=== PATIENT | female | born 1985 | race Caucasian/White ===

== ENCOUNTER 2016-07-11 07:40 | Emergency (ER) | payer OTHER ==
[2016-07-11] MEDS ORDERED: Ondansetron 4 MG Tab.DIS PO ONE (08:49)
[2016-07-11] MEDS ORDERED: Sodium Chloride 0.9% 2.5 ML Syringe FLUSH PRN (08:50)
[2016-07-11] MEDS ORDERED: Sodium Chloride 0.9% 10 ML Syringe FLUSH PRN (08:50)
--- NOTE | 2016-07-11 08:54 | EDM.PDOC ---
ED HPI GI/ABDOMINAL - General Chief Complaint: Gastrointestinal Problem Stated Complaint: SICK/FEVER Time Seen by Provider: 07/11/16 08:13 Source of Information: Reports: Patient History Limitations: Reports: No limitations - History of Present Illness INITIAL COMMENTS - FREE TEXT/NARRATIVE: HISTORY AND PHYSICAL: History of present illness: [30-year-old female with no significant past medical history and no prior abdominal problems now complaining of nausea and diarrhea for several days. She denies abdominal pain. She has not actually vomiting but states her nausea makes her mildly uncomfortable.] She is normal bladder habits. Patient denies possibility of as she is having normal periods that she's not 6 active. Per triage note the patient did fall off worse recently but states she did not suffer any significant injury and has just been mildly sore since. She had no head injury or loss of consciousness. Denies any significant neck or back pain other than general soreness. No spinal pain. Patient is been ambulatory and functional without difficulty since the injury and since the onset of this illness. She does perceive some fevers chills and sweats but temperature in triage was 100.1 with no antipyretics taken this morning. No headache or stiff neck Review of systems: As per history of present illness and below otherwise all systems reviewed and negative. Past medical history: As per history of present illness and as reviewed below otherwise noncontributory. Surgical history: As per history of present illness and as reviewed below otherwise noncontributory. Social history: No reported history of drug or alcohol abuse. Family history: As per history of present illness and as reviewed below otherwise noncontributory. Physical exam: HEENT: Atraumatic, normocephalic, pupils reactive, negative for conjunctival pallor or scleral icterus, mucous membranes moist, throat clear, neck supple, nontender, trachea midline. Lungs: Clear to auscultation, breath sounds equal bilaterally, chest nontender. Heart: S1S2, regular, negative for clicks, rubs, or JVD. Abdomen: Soft, nondistended, nontender. Negative for masses or hepatosplenomegaly. Negative for costovertebral tenderness. Pelvis: Stable nontender. Genitourinary: Deferred. Rectal: Deferred. Extremities: Atraumatic, negative for cords or calf pain. Neurovascular unremarkable. Neuro: Awake, alert, oriented. Cranial nerves grossly unremarkable. Cerebellum unremarkable. Motor and sensory unremarkable throughout. Exam nonfocal. Diagnostics: [Basic met pending to rule out electrolyte abnormality] Therapeutics: [Zofran and IV fluids given] Impression: [] Plan: [Signs and symptoms consistent with viral gastroenteritis in a well-appearing patient with moist mucous membranes and very mild tachycardia 107 on arrival. Abdominal exam completely benign. Patient is well-appearing. Recent fall from horse but patient did not come to the emergency department because of a mild generalized soreness she's experienced since, but rather because of her nausea and diarrhea. She has no abdominal pain. Normal bladder habits. Denies possibility of basic metabolic panel pending to rule out hypokalemia secondary to diarrhea, or other electrolyte abnormality. Patient hydrated with a liter of normal saline in the ED and feels improved. No further workup or treatment indicated. Patient agrees with outpatient followup. Zofran prescribed and Strict return precautions given. Definitive disposition and diagnosis as appropriate pending reevaluation and review of above. - Related Data Allergies/ADRs: Allergies Allergy/AdvReac Type Severity Reaction Status Date / Time diphenhydramine Allergy Hives Verified 07/11/16 07:56 [From Benadryl] Home Meds: Home Meds Ondansetron [Zofran ODT] 4 mg SL Q4H PRN #16 tab.dis 07/11/16 [Rx] Past Medical History Psychiatric History: Reports: Anxiety, Depression - Past Surgical History HEENT Surgical History: Reports: Tonsillectomy Female Surgical History: Reports: section Social & Family History - Family History Family Medical History: Noncontributory - Tobacco Use Smoking Status *Q: Never Smoker - Caffeine Use Caffeine Use: Reports: Soda - Recreational Drug Use Recreational Drug Use: No ED ROS GENERAL - Review of Systems Review Of Systems: See Below (History of present illness) ED EXAM, GI/ABD - Physical Exam Exam: See Below (History of present illness) Course - Vital Signs Last Recorded V/S: Last Vital Signs Temp 37.8 C 07/11/16 07:56 Pulse 107 H 07/11/16 07:56 Resp 18 07/11/16 07:56 BP 119/65 07/11/16 07:56 Pulse Ox 96 07/11/16 07:56 - Orders/Labs/Meds Orders: Active Orders 24 hr Category Date Time Status BASIC METABOLIC PANEL,BMP [CHEM] Routine Lab 07/11/16 09:06 Received Sodium Chloride 0.9% [Normal Saline] 1,000 ml Med 07/11/16 09:00 Active IV STAT Sodium Chloride 0.9% [Saline Flush] Med 07/11/16 08:50 Active 10 ml FLUSH ASDIRECTED PRN Sodium Chloride 0.9% [Saline Flush] Med 07/11/16 08:50 Active 2.5 ml FLUSH ASDIRECTED PRN Peripheral IV Insertion Adult [OM.PC] Stat Oth 07/11/16 08:50 Ordered Medication Orders Sodium Chloride (Normal Saline) 1,000 mls @ 999 mls/hr IV STAT PAM Last Admin: 07/11/16 09:07 Dose: 999 mls/hr Sodium Chloride (Saline Flush) 10 ml FLUSH ASDIRECTED PRN PRN Reason: Keep Vein Open Sodium Chloride (Saline Flush) 2.5 ml FLUSH ASDIRECTED PRN PRN Reason: Keep Vein Open Meds: Medications Generic Name Dose Route Start Last Admin Trade Name Freq PRN Reason Stop Dose Admin Sodium Chloride 1,000 mls @ 999 mls/hr 07/11/16 09:00 07/11/16 09:07 Normal Saline IV 999 mls/hr STAT PAM Administration Sodium Chloride 10 ml 07/11/16 08:50 Saline Flush FLUSH ASDIRECTED PRN Keep Vein Open Sodium Chloride 2.5 ml 07/11/16 08:50 Saline Flush FLUSH ASDIRECTED PRN Keep Vein Open Discontinued Medications Generic Name Dose Route Start Last Admin Trade Name Freq PRN Reason Stop Dose Admin Ondansetron HCl 4 mg 07/11/16 08:49 07/11/16 08:58 Zofran Odt PO 07/11/16 08:50 4 mg ONETIME ONE Administration Departure - Departure Time of Disposition: 09:16 Disposition: Home, Self-Care 01 Condition: good Clinical Impression: Viral gastroenteritis, Viral syndrome, Diarrhea Prescriptions: Ondansetron [Zofran ODT] 4 mg SL Q4H PRN #16 tab.dis PRN Reason: Nausea Instructions: Viral Gastroenteritis, Adult, [id number] Referrals: PCP,None [Primary Care Provider] - Forms: ED Department Discharge Additional Instructions: Your symptoms and findings are consistent with viral gastroenteritis. This is a viral infection it causes nausea and diarrhea. Rest and drink plenty of fluids. Use Zofran under your tongue every 4 hours as needed for nausea. Take Tylenol every 4 hours and Motrin every 6 hours if needed for fevers or body aches. Followup with your tomorrow and return immediately for new severe or worsening symptoms - My Orders Last 24 Hours: My Active Orders 07/11/16 08:50 Sodium Chloride 0.9% [Saline Flush] 10 ml FLUSH ASDIRECTED PRN Sodium Chloride 0.9% [Saline Flush] 2.5 ml FLUSH ASDIRECTED PRN Peripheral IV Insertion Adult [OM.PC] Stat 07/11/16 09:00 Sodium Chloride 0.9% [Normal Saline] 1,000 ml IV STAT 07/11/16 09:06 BASIC METABOLIC PANEL,BMP [CHEM] Routine - Assessment/Plan Last 24 Hours: My Active Orders 07/11/16 08:50 Sodium Chloride 0.9% [Saline Flush] 10 ml FLUSH ASDIRECTED PRN Sodium Chloride 0.9% [Saline Flush] 2.5 ml FLUSH ASDIRECTED PRN Peripheral IV Insertion Adult [OM.PC] Stat 07/11/16 09:00 Sodium Chloride 0.9% [Normal Saline] 1,000 ml IV STAT 07/11/16 09:06 BASIC METABOLIC PANEL,BMP [CHEM] Routine
[2016-07-11] MEDS ORDERED: Sodium Chloride 0.9% 1,000 ML IV SCH (09:00)
[2016-07-11 09:52] LABS: CHLORIDE,CL 104 mmol/L (98-110); SODIUM,NA 133 mmol/L (136-146)
[2016-07-11] MEDS ORDERED: Sodium Chloride 0.9% 1,000 ML IV ONE (10:03)
[2016-07-11] MEDS ORDERED: Acetaminophen 500 MG Tab PO STA (10:04)
[2016-07-11 10:58] VITALS: BP 109/58
== END 2016-07-11 10:45 | disposition home or self-care (01) ==
LOC: MW.ED 07:40
DX: A08.4 Viral intestinal infection, unspecified (principal); B34.9 Viral infection, unspecified; F32.9 Major depressive disorder, single episode, unspecified; F41.9 Anxiety disorder, unspecified; Z98.890 Other specified postprocedural states; Z88.8 Allergy status to other drugs, medicaments and biological substances
CPT/HCPCS: 36415; 80048; 96360; 99283; A9270; J7040

== ENCOUNTER 2016-07-23 21:24 | Emergency (ER) | payer OTHER ==
[2016-07-23] MEDS ORDERED: Bacitracin Oint 1 GM U/D Packet TOP ONE (21:49)
--- NOTE | 2016-07-23 21:53 | EDM.PDOC ---
ED HPI GENERAL MEDICAL PROBLEM - General Stated Complaint: PT HURT LT HAND Time Seen by Provider: 07/23/16 21:42 - History of Present Illness INITIAL COMMENTS - FREE TEXT/NARRATIVE: HISTORY AND PHYSICAL: History of present illness: The patient is a healthy 30-year-old female who presents with complaints of pain and swelling to the dorsal aspect of her left hand. Patient states that about 1:30 this afternoon a piece of equipment from her worse trailer fell on top of it causing a superficial wound of swelling and pain. Patient says her last tetanus was 5 years ago and defers a tetanus shot here today. Patient is right-hand dominant. Patient says that earlier prior to these events she was in her usual state of good health with no systemic complaints and currently has no systemic complaints other than pain to her hand. There is no numbness or tingling in her fingers. Patient took Motrin earlier Review of systems: As per history of present illness and below otherwise all systems reviewed and negative. Past medical history: As per history of present illness and as reviewed below otherwise noncontributory. Surgical history: As per history of present illness and as reviewed below otherwise noncontributory. Social history: No reported history of drug or alcohol abuse. Family history: As per history of present illness and as reviewed below otherwise noncontributory. Physical exam: General: Well-developed well-nourished female is nontoxic and vital signs of a noted by me. HEENT: Atraumatic, normocephalic, negative for conjunctival pallor or scleral icterus, mucous membranes moist, throat clear, neck supple, nontender, trachea midline. Lungs: Clear to auscultation, breath sounds equal bilaterally, chest nontender. Heart: S1S2, regular rate and rhythm no overt murmurs Abdomen: Soft, nondistended, nontender. NABS Pelvis: Stable nontender. Genitourinary: Deferred. Rectal: Deferred. Extremities: Atraumatic except for the dorsal aspect of the left hand where there is soft tissue swelling throughout and tenderness. No palpable bony deformities are appreciated or crepitus. There is a superficial puncture like wound is seen which is nonbleeding. Patient is able to move all digits and cap refill is good. Pulses are intact and proximal wrist forearm elbow and shoulder are without tenderness defects or deformities. All of the extremities have full range of motion and the legs are, negative for cords or calf pain. Neurovascular unremarkable. Neuro: Awake, alert, oriented. Cranial nerves II through XII unremarkable. Cerebellum unremarkable. Motor and sensory unremarkable throughout. Exam nonfocal. Diagnostics: Left hand x-ray Therapeutics: Patient was offered pain medication andTdap and defers at this time Wound care velcro hand/wrist splint Impression: Left hand injury, contusion with puncture wound Definitive disposition and diagnosis as appropriate pending reevaluation and review of above. Left Hand Pain Score (Numeric/FACES): 6 - Related Data Allergies Allergy/AdvReac Type Severity Reaction Status Date / Time diphenhydramine Allergy Hives Verified 07/11/16 07:56 [From Benadryl] Home Meds: Home Meds FLUoxetine [PROzac] 10 mg PO DAILY 07/11/16 [History] Past Medical History Psychiatric History: Reports: Anxiety, Depression - Past Surgical History Female Surgical History: Reports: Section Social & Family History - Family History Family Medical History: Noncontributory - Tobacco Use Smoking Status *Q: Never Smoker - Caffeine Use Caffeine Use: Reports: Soda - Recreational Drug Use Recreational Drug Use: No ED ROS GENERAL - Review of Systems Review Of Systems: ROS reveals no pertinent complaints other than HPI. ED EXAM, GENERAL - Physical Exam Exam: See Below (See dictation) Course - Vital Signs Last Recorded V/S: Last Vital Signs Temp 37.1 C 07/23/16 21:50 Pulse 78 07/23/16 21:50 Resp 19 07/23/16 21:50 BP 142/83 H 07/23/16 21:50 Pulse Ox 97 07/23/16 21:50 - Orders/Labs/Meds Orders: Active Orders 24 hr Category Date Time Status Communication Order [RC] STAT Care 07/23/16 21:49 Active Hand Comp Min 3V Lt [CR] Stat Exams 07/23/16 21:49 Taken DME for Discharge [COMM] Stat Oth 07/23/16 22:27 Ordered Meds: Medications Discontinued Medications Generic Name Dose Route Start Last Admin Trade Name Freq PRN Reason Stop Dose Admin Bacitracin 1 dose 07/23/16 21:49 07/23/16 22:10 Bacitracin Oint 1 Gm TOP 07/23/16 21:50 1 dose ONETIME ONE Administration Departure - Departure Time of Disposition: 22:28 Disposition: Home, Self-Care 01 Condition: good Clinical Impression: Contusion of left hand Qualifiers: Encounter type: initial encounter Qualified Code(s): S60.222A - Contusion of left hand, initial encounter - Discharge Information Additional Instructions: The following information is given to patients seen in the emergency department who are being discharged to home. This information is to outline your options for follow-up care. We provide all patients seen in our emergency department with a follow-up referral. The need for follow-up, as well as the timing and circumstances, are variable depending upon the specifics of your emergency department visit. If you don't have a primary care physician on staff, we will provide you with a referral. We always advise you to contact your personal physician following an emergency department visit to inform them of the circumstance of the visit and for follow-up with them and/or the need for any referrals to a consulting specialist. The emergency department will also refer you to a specialist when appropriate. This referral assures that you have the opportunity for followup care with a specialist. All of these measure are taken in an effort to provide you with optimal care, which includes your followup. Under all circumstances we always encourage you to contact your private physician who remains a resource for coordinating your care. When calling for followup care, please make the office aware that this follow-up is from your recent emergency room visit. If for any reason you are refused follow-up, please contact the [facility] emergency department at and ask to speak to the emergency department charge nurse. [facility] Specialty clinic-Plastic Surgery and Hand Surgery Professional Building [address] [place] [id number] [facility] Primary care- Internal Medicine and Family [facility] [address] [place] [id number] Wear splint as shown the next 5-7 days and call and followup with our hand specialist using resources given to above. Call for that appointment on Monday to be seen next week. Keep the wound clean and dry with mild soap and water and bacitracin or Neosporin. Ice and elevate the hand and return to ER as needed and as discussed. Use [id number] medication as needed for pain - My Orders Last 24 Hours: My Active Orders 07/23/16 21:49 Communication Order [RC] STAT Hand Comp Min 3V Lt [CR] Stat 07/23/16 22:27 DME for Discharge [COMM] Stat - Assessment/Plan Last 24 Hours: My Active Orders 07/23/16 21:49 Communication Order [RC] STAT Hand Comp Min 3V Lt [CR] Stat 07/23/16 22:27 DME for Discharge [COMM] Stat
[2016-07-23 23:12] VITALS: BP 111/74
--- NOTE | 2016-07-25 15:33 | CR ---
EXAM DATE: 07/23/16 PATIENT'S AGE: 30 Patient: ANAMIKA MONTGOMERY Facility: [place], [place] Site . Site : 1985 Study: XRay Extremity Left hand [id number]/[id number] 10:10:43 PM Ordering Physician: Doctor Rapp Final Report: INDICATION: Trauma. TECHNIQUE: Three views of the left hand. COMPARISON: None. IMPRESSION: No fracture. No traumatic subluxation or dislocation. Nonspecific soft tissue swelling. Dictated by Jaime Shahid MD @ 07/23/2016 10:21:15 PM Dictated by: Jaime Shahid MD @ 07/23/2016 22:21:24 (Electronic Signature) Report Signed by Proxy. ANNIKA
== END 2016-07-23 22:55 | disposition home or self-care (01) ==
LOC: MW.ED 21:24
DX: S61.432A Puncture wound without foreign body of left hand, initial encounter (principal); F32.9 Major depressive disorder, single episode, unspecified; F41.9 Anxiety disorder, unspecified; Z23 Encounter for immunization; Z88.8 Allergy status to other drugs, medicaments and biological substances; W19.XXXA Unspecified fall, initial encounter
CPT/HCPCS: 73130; 99283; L3908; 99282

== ENCOUNTER 2018-04-21 07:11 | Emergency (ER) | payer OTHER ==
--- NOTE | 2018-04-21 07:51 | EDM.PDOC ---
ED HPI GENERAL MEDICAL PROBLEM - General Chief Complaint: ENT Problem Stated Complaint: SORE THROAT, PAIN IN BOTH EARS Time Seen by Provider: 04/21/18 07:28 Source of Information: Reports: Patient History Limitations: Reports: No Limitations - History of Present Illness INITIAL COMMENTS - FREE TEXT/NARRATIVE: History of present illness: []Patient has history of one week of cold symptoms with sore throat and ear pain. She denies any fevers, chills, cough, illness of breath, congestion or sinus pain. He was seen by her doctor in [place] and a throat swab was done which was negative and she was discharged. She is unhappy about this and wants to be treated with a medication that will take her symptoms away. Review of systems: As per history of present illness and below otherwise all systems reviewed and negative. Past medical history: As per history of present illness and as reviewed below otherwise noncontributory. Surgical history: As per history of present illness and as reviewed below otherwise noncontributory. Social history: No reported history of drug or alcohol abuse. Family history: As per history of present illness and as reviewed below otherwise noncontributory. Physical exam: General: Well developed, well nourished in NAD HEENT: Atraumatic, normocephalic, pupils reactive, negative for conjunctival pallor or scleral icterus, mucous membranes moist, throat clear, no erythema or exudate neck supple, nontender, trachea midline. TMs clear, no stridor Lungs: Clear to auscultation, breath sounds equal bilaterally, chest nontender. Wheezing Heart: S1S2, regular, negative for clicks, rubs, or JVD. Abdomen: NABS, Soft, nondistended, nontender. Negative for masses or hepatosplenomegaly. Negative for costovertebral tenderness. Pelvis: Stable nontender. Genitourinary: Deferred. Rectal: Deferred. Extremities: Atraumatic, negative for cords or calf pain. Neurovascular unremarkable. Neuro: Awake, alert, oriented. Cranial nerves II through XII unremarkable. Cerebellum unremarkable. Motor and sensory unremarkable throughout. Exam nonfocal. Skin:warm and dry Diagnostics: Influenza, strep Therapeutics: None ED Course: Unremarkable Impression: Viral URI Prescriptions: None Plan: Tylenol, Motrin, increase fluids, follow-up with primary care as needed. Definitive disposition and diagnosis as appropriate pending reevaluation and review of above. throat Pain Score (Numeric/FACES): 8 - Related Data Allergies Allergy/AdvReac Type Severity Reaction Status Date / Time diphenhydramine Allergy Hives Verified 04/21/18 07:26 [From Benadryl] Home Meds: Home Meds FLUoxetine [PROzac] 20 mg PO DAILY 07/11/16 [History] Past Medical History Cardiovascular History: Reports: Hypertension Psychiatric History: Reports: Anxiety, Depression - Infectious Disease History Infectious Disease History: Reports: Chicken Pox - Past Surgical History HEENT Surgical History: Reports: LASIK, Tonsillectomy GI Surgical History: Reports: Appendectomy Female Surgical History: Reports: Section Social & Family History - Family History Family Medical History: Noncontributory - Tobacco Use Smoking Status *Q: Never Smoker - Caffeine Use Caffeine Use: Reports: Soda - Recreational Drug Use Recreational Drug Use: No ED ROS ENT - Review of Systems Review Of Systems: ROS reveals no pertinent complaints other than HPI. ED EXAM, ENT - Physical Exam Exam: See Below (History of present illness) Course - Vital Signs Last Recorded V/S: Last Vital Signs Temp 98.2 F 04/21/18 07:26 Pulse 74 04/21/18 07:26 Resp 18 04/21/18 07:26 BP 124/60 04/21/18 07:26 Pulse Ox 96 04/21/18 07:26 - Orders/Labs/Meds Orders: Active Orders 24 hr Category Date Time Status CULTURE STREP A CONFIRMATION [RM] Stat Lab 04/21/18 07:30 Results STREP SCRN A RAPID W CULT CONF [RM] Stat Lab 04/21/18 07:30 Results Departure - Departure Time of Disposition: 08:20 Disposition: Home, Self-Care 01 Condition: Good Clinical Impression: Viral URI - Discharge Information *PRESCRIPTION DRUG MONITORING PROGRAM REVIEWED*: No *COPY OF PRESCRIPTION DRUG MONITORING REPORT IN PATIENT PATRICK: No Referrals: PCP,None [Primary Care Provider] - Forms: ED Department Discharge Additional Instructions: The following information is given to patients seen in the emergency department who are being discharged to home. This information is to outline your options for follow-up care. We provide all patients seen in our emergency department with a follow-up referral. The need for follow-up, as well as the timing and circumstances, are variable depending upon the specifics of your emergency department visit. If you don't have a primary care physician on staff, we will provide you with a referral. We always advise you to contact your personal physician following an emergency department visit to inform them of the circumstance of the visit and for follow-up with them and/or the need for any referrals to a consulting specialist. The emergency department will also refer you to a specialist when appropriate. This referral assures that you have the opportunity for follow-up care with a specialist. All of these measure are taken in an effort to provide you with optimal care, which includes your follow-up. Under all circumstances we always encourage you to contact your private physician who remains a resource for coordinating your care. When calling for follow-up care, please make the office aware that this follow-up is from your recent emergency room visit. If for any reason you are refused follow-up, please contact the [facility] Emergency Department at and asked to speak to the emergency department charge nurse. Increase fluids [id number] meds for symptomatic treatment, follow up with primary care as needed [facility] Primary Care - Pediatric Clinic [address] [place] [phone] - My Orders Last 24 Hours: My Active Orders 04/21/18 07:30 CULTURE STREP A CONFIRMATION [RM] Stat STREP SCRN A RAPID W CULT CONF [RM] Stat - Assessment/Plan Last 24 Hours: My Active Orders 04/21/18 07:30 CULTURE STREP A CONFIRMATION [RM] Stat STREP SCRN A RAPID W CULT CONF [RM] Stat
[2018-04-21 08:36] VITALS: BP 131/80
== END 2018-04-21 08:34 | disposition home or self-care (01) ==
LOC: MW.ED 07:11
DX: J06.9 Acute upper respiratory infection, unspecified (principal); I10 Essential (primary) hypertension; Z79.899 Other long term (current) drug therapy
CPT/HCPCS: 87081; 87804; 87880-QW; 99282; 99283

== ENCOUNTER 2018-06-27 07:55 | Day surgery (SDC) | payer OTHER ==
[~2018-06-27 07:55] MED LIST: Lactated Ringers 1,000 ML IV SCH; Lidocaine 1% 20 ML MDV ONE
[2018-06-27] MEDS ORDERED: ceFAZolin 2 GM in Premix Bag 1 BAG IV SCH (08:00)
[2018-06-27] MEDS ORDERED: Acetaminophen/HYDROcodone 325-5 MG Tab PO PRN (08:00)
[2018-06-27] MEDS ORDERED: fentaNYL 250 MCG/5 ML SDV ONE (08:30)
[2018-06-27] MEDS ORDERED: Propofol 200 MG/20 ML SDV ONE (08:30)
[2018-06-27] MEDS ORDERED: Midazolam 1 MG/ML 2 ML SDV ONE (08:30)
--- NOTE | 2018-06-27 08:36 | PCM.PREANE ---
Preanesthetic Assessment - Anesthesia/Transfusion/Family Hx Anesthesia History: Prior Anesthesia Without Reaction Family History of Anesthesia Reaction: No Transfusion History: No Prior Transfusion(s) - Review of Systems General: No Symptoms Pulmonary: No Symptoms Cardiovascular: No Symptoms Gastrointestinal: No Symptoms Neurological: No Symptoms Other: Reports: None - Physical Assessment NPO Status Date: 06/26/18 O2 Sat by Pulse Oximetry: 95 Respiratory Rate: 16 Vital Signs: Last Vital Signs Temp 97.9 F 06/27/18 08:15 Pulse 69 06/27/18 08:15 Resp 16 06/27/18 08:15 BP 123/76 06/27/18 08:15 Pulse Ox 95 06/27/18 08:15 Height: 5 ft 6 in Weight: 88.904 kg ASA Class: 2 Mental Status: Alert & Oriented x3 Airway Class: Mallampati = 1 Dentition: Reports: Normal Dentition ROM/Head Extension: Full Lungs: Clear to Auscultation, Normal Respiratory Effort Cardiovascular: Regular Rate, Regular Rhythm - Allergies Allergies/Adverse Reactions: Allergies Allergy/AdvReac Type Severity Reaction Status Date / Time diphenhydramine Allergy Hives Verified 06/21/18 11:51 [From Benadryl] - Blood Blood Available: No - Anesthesia Plan Pre-Op Medication Ordered: None - Acknowledgements Anesthesia Type Planned: General Anesthesia Pt an Appropriate Candidate for the Planned Anesthesia: Yes Alternatives and Risks of Anesthesia Discussed w Pt/Guardian: Yes Pt/Guardian Understands and Agrees with Anesthesia Plan: Yes PreAnesthesia Questionnaire HEENT History: Reports: None, Other (See Below) Other HEENT History: wears glasses, Cardiovascular History: Reports: None Respiratory History: Reports: None Gastrointestinal History: Reports: None Genitourinary History: Reports: None [employer]OR History: Reports: Musculoskeletal History: Reports: None Neurological History: Reports: None Psychiatric History: Reports: Anxiety, Depression Endocrine/Metabolic History: Reports: Obesity/BMI 30+ Hematologic History: Reports: None Immunologic History: Reports: None Oncologic (Cancer) History: Reports: None Dermatologic History: Reports: None - Infectious Disease History Infectious Disease History: Reports: Chicken Pox - Past Surgical History Head Surgeries/Procedures: Reports: None HEENT Surgical History: Reports: LASIK, Tonsillectomy Cardiovascular Surgical History: Reports: None Respiratory Surgical History: Reports: None GI Surgical History: Reports: Appendectomy Female Surgical History: Reports: Section Endocrine Surgical History: Reports: None Neurological Surgical History: Reports: None Musculoskeletal Surgical History: Reports: None Oncologic Surgical History: Reports: None Dermatological Surgical History: Reports: None - SUBSTANCE USE Smoking Status *Q: Current Some Day Smoker Tobacco Use Within Last Twelve Months: Cigarettes Recreational Drug Use History: No - HOME MEDS Home Medications: Home Meds FLUoxetine [PROzac] 20 mg PO DAILY 07/11/16 [History] - CURRENT (IN HOUSE) MEDS Current Meds: Current Medications Hydrocodone Bitart/Acetaminophen ([place] 325-5 Mg) 1 - 2 tab PO Q4H PRN PRN Reason: Pain Cefazolin Sodium/Dextrose 2 gm (/ Premix) 50 mls @ 100 mls/hr IV ONCALL PAM Lactated Ringer's (Ringers, Lactated) 1,000 mls @ 100 mls/hr IV ASDIRECTED PAM Discontinued Medications Fentanyl (Sublimaze) Confirm Administered Dose 250 mcg .ROUTE .STK-MED ONE Stop: 06/27/18 08:31 Lidocaine HCl (Xylocaine 1%) Confirm Administered Dose 20 ml .ROUTE .STK-MED ONE Stop: 06/27/18 07:30 Midazolam HCl (Versed 1 Mg/Ml) Confirm Administered Dose 2 mg .ROUTE .STK-MED ONE Stop: 06/27/18 08:31 Propofol (Diprivan 20 Ml) Confirm Administered Dose 200 mg .ROUTE .STK-MED ONE Stop: 06/27/18 08:31
[2018-06-27] MEDS ORDERED: fentaNYL 100 MCG/2 ML SDV IVPUSH PRN (10:30)
[2018-06-27] MEDS ORDERED: Ondansetron 4 MG/2 ML SDV IVPUSH ONE (10:30)
[2018-06-27] MEDS ORDERED: HYDROmorphone 2 MG/ML SDV IVPUSH ONE (10:30)
[2018-06-27] MEDS ORDERED: HYDROmorphone 2 MG/ML Syringe ONE (10:32)
[2018-06-27] MEDS ORDERED: Ketorolac 30 MG/ML SDV ONE (10:49)
--- NOTE | 2018-06-27 10:57 | PCM.OPNOTE ---
- General Post-Op/Procedure Note Date of Surgery/Procedure: 06/27/18 Operative Procedure(s): R knee scope with PMM Post-Op Diagnosis: R knee med meniscus tear, ACL tear, chondromalacia patella Anesthesia Technique: General LMA Primary Surgeon: Jonelle Ellington Generator Switchboard Operator: Norma Medrano in mLs: 5 Condition: Good Free Text/Narrative:: #[id number]
--- NOTE | 2018-06-27 11:29 | PCM.POSTAN ---
POST ANESTHESIA ASSESSMENT - MENTAL STATUS Mental Status: Alert, Oriented - RESPIRATORY Respiratory Status: Respiratory Rate WNL, Airway Patent, O2 Saturation Stable - CARDIOVASCULAR CV Status: Pulse Rate WNL, Blood Pressure Stable - GASTROINTESTINAL GI Status: No Symptoms - POST OP HYDRATION Hydration Status: Adequate & Stable
[2018-06-27 11:55] VITALS: BP 130/84
--- NOTE | 2018-06-27 12:00 | PCM48HPAN ---
Post Anesthesia Note - EVALUATION WITHIN 48HRS OF ANESTHETIC Vital Signs in Normal Range: Yes Patient Participated in Evaluation: Yes Respiratory Function Stable: Yes Airway Patent: Yes Cardiovascular Function Stable: Yes Hydration Status Stable: Yes Pain Control Satisfactory: Yes Nausea and Vomiting Control Satisfactory: Yes Mental Status Recovered: Yes Resp Rate: 16
--- NOTE | 2018-06-28 09:34 | OR ---
SURGEON: Jonelle Ellington MD DATE OF PROCEDURE: 06/27/2018 PREOPERATIVE DIAGNOSIS: 1. Right knee anterior cruciate ligament tear. 2. Right knee medial meniscus tear. POSTOPERATIVE DIAGNOSIS: 1. Right knee anterior cruciate ligament tear. 2. Right knee medial meniscus tear. 3. Chondromalacia of the patella. PROCEDURE: Right knee arthroscopy with partial medial meniscectomy. SENIOR ORACLE DATABASE ADMINISTRATOR: Norma Medrano RN. ANESTHESIA: General. ESTIMATED BLOOD LOSS: 5 mL. TOURNIQUET TIME: See nursing record. COMPLICATIONS: None. DVT PROPHYLAXIS: Not indicated. IMPLANTS USED: None. BRIEF HISTORY: Alanis is a 32-year-old female, who sustained an injury to her right knee. She continued to complain of instability. Due to her lack of response to conservative treatment, I did recommend surgical treatment. The risks and goals of the procedure were discussed with the patient and were documented preoperatively. She agreed to proceed. DESCRIPTION OF PROCEDURE: The patient was properly identified and brought to the operating room. She was transferred from the OR cart and placed on the operating table in supine position. General anesthesia was administered. After adequate anesthesia was obtained, a well-padded tourniquet was applied to the right lower extremity. The right lower extremity was then prepped in standard fashion using ChloraPrep solution. It was then sterilely draped. A time-out was performed to ensure correct site and procedure. Preoperative antibiotics were given. The surgical site had been marked preoperatively. An Esmarch was used to exsanguinate the right lower extremity and tourniquet was inflated to 250 mmHg. A lateral portal arthrotomy was established. Blunt trocar and cannula were introduced into the suprapatellar space. Camera, inflow, and outflow were assembled. No significant synovitis was noted within the patellofemoral joint. The patella showed degenerative changes along the undersurface. The trochlea showed no degenerative changes. The patella appeared to track centrally. I then extended down the lateral and medial gutter. No loose bodies were identified. I then entered the medial compartment. A medial portal arthrotomy was established. A blunt probe was inserted. Immediately evident was a large displaced bucket-handle tear of the meniscus, which was able to be easily reduced. The tear was quite frayed and was not amenable to repair. Using a combination of biters and shaver, this was resected back to a stable remnant. The remainder of the meniscus appeared intact. Joint surfaces showed minor degenerative changes consistent with grade 1 to grade 2 findings. I then entered the notch. The ACL was visualized. There was only a small thin fiber remaining that was attached to the lateral femoral condyle. The PCL appeared intact. I then entered the lateral compartment. Grade 2 degenerative changes were noted along the lateral tibial plateau. The lateral femoral condyle showed no degenerative findings. The meniscus was extensively probed and found to be intact. I then re-entered the patellofemoral joint. A chondroplasty of the patella was performed. No further loose fragments of cartilage were noted. Instruments were then removed from the knee. The portal sites were closed with 3-0 nylon. 1% Lidocaine was injected along the portal tracts. Xeroform gauze was placed over the wound and a bulky dressing was applied. The tourniquet was then deflated. She was awakened from her anesthetic and transferred back to the operating room cart. She was brought to recovery room in stable condition. All needle and sponge counts were correct. AMANDA / COLLIN /[id number]
== END 2018-06-27 12:20 | disposition home or self-care (01) ==
LOC: MW.SDS 07:55
PROVIDERS: ATTEND Orthopaedic Surgery
DX: S83.211A Bucket-handle tear of medial meniscus, current injury, right knee, initial encounter (principal); S83.511A Sprain of anterior cruciate ligament of right knee, initial encounter; M22.41 Chondromalacia patellae, right knee; F32.9 Major depressive disorder, single episode, unspecified; F41.9 Anxiety disorder, unspecified; F17.200 Nicotine dependence, unspecified, uncomplicated; X58.XXXA Exposure to other specified factors, initial encounter; Z88.8 Allergy status to other drugs, medicaments and biological substances; Z91.030 Bee allergy status; Z79.899 Other long term (current) drug therapy
CPT/HCPCS: 29881; 81025; 88304; J1170; J1885; J2001; J2250; J2704; J3010; J7120; 01400